=== PATIENT | male | born 1940 | race Caucasian/White ===

== ENCOUNTER 2022-09-24 10:41 | Emergency (ER) | payer MEDICARE, BC, SELFPAY ==
[2022-09-24 10:45] VITALS: BP 159/82; PULSE 70; RESP 18; TEMP 36.4; O2SAT 99; BMI 28.8
[2022-09-24 11:51] LABS: Basophils Absolute Auto 0.06 K/uL (0.00-0.30); Basophils Percent Auto 0.7 % (0.0-3.0); Hemoglobin* 13.1 gm/dL (13.5-17.5); Immature Granulocytes Abs Auto 0.01 K/uL (0.00-0.30); Immature Granulocytes Pct Auto 0.1 %; Lymphocytes Absolute Auto 2.04 K/uL (0.90-2.90); Lymphocytes Percent Auto 25.4 % (20-44); Mean Corpuscular HGB Conc 33 gm/dL (32-36); Mean Corpuscular Hemoglobin 31 pg (26-34); Mean Corpuscular Volume 94 fL (80-100); Monocytes Percent Auto 8.6 % (0.0-11.0); Neutrophils Absolute Auto 4.58 K/uL (1.7-7.0); Neutrophils Percent Auto 57.2 % (42.0-72.0); Platelet Count* 185 K/uL (140-440); Red Blood Count 4.26 m/uL (4.30-5.90); Slide Review Reflex No; White Blood Count* 8.02 K/uL (4.50-11.00)
--- NOTE | 2022-09-24 12:02 | ED_ITS ---
HPI - Chest Pain General Chief Complaint: Chest Pain Stated Complaint: chest pressure Time Seen by Provider: 09/24/22 11:11 History of Present Illness HPI narrative: 81-year-old man presenting to the emergency department on recommendation of Clinic/Urgent Care where he was evaluated this morning with an EKG. Does have a history of cardiac stents. He has recently returned to working out over the last few months. Just returned also from a trip to [place] where he was enjoying food and says that he gained 10 lb. While on his treadmill last night did have some right-sided and central chest pressure as well as a raw feeling in his throat that he would associate with prior ischemic cardiovascular events. He does have nitro but did not take it and notes that is rather old he probably should get a new prescription. He just stopped his workout and the discomfort went away. He remains pain-free since that time. He arrives to the emergency department around 11:00 a.m. the next morning. Other concern is that he was rather congested this morning in his throat having trouble clearing at noting him to sound like he had a ? rattle?. He is breathing fine. I note him to sound a little congested nasopharynx and he does acknowledge with more specific questioning that does probably have some allergies. Otherwise no cough or cold symptoms recently. No fevers. Not feeling lightheaded. Related Data Home Medications Medication Instructions Recorded Confirmed aspirin 81 mg tablet,delayed 81 mg PO QDAY 07/14/22 07/14/22 release blood sugar diagnostic (Contour #[id number] ea 07/14/22 07/14/22 Next Test Strips) lisinopril 40 mg tablet 40 mg PO QDAY 07/14/22 07/14/22 metformin 500 mg tablet 500 mg PO QDAY 07/14/22 07/14/22 metoprolol tartrate 25 mg tablet 25 mg PO QDAY 07/14/22 07/14/22 multivitamin (Multiple Vitamins 1 tab PO QDAY 07/14/22 07/14/22 tablet) nitroglycerin 0.4 mg sublingual 0.4 mg sublingual ONCE 07/14/22 07/14/22 tablet rosuvastatin 20 mg tablet 20 mg PO QDAY 07/14/22 07/14/22 Previous Rx's Medication Instructions Recorded nitroglycerin 0.4 mg sublingual 0.4 mg sublingual Q5M PRN chest 09/24/22 tablet pain #20 tabs Allergies Allergy/AdvReac Type Severity Reaction Status Date / Time atorvastatin Allergy leg aches Verified 07/14/22 15:26 oxycodone Allergy Hives Verified 07/14/22 15:26 simvastatin Allergy leg aches Verified 07/14/22 15:26 Review of Systems Status of ROS Reports: 6 or more systems reviewed and unremarkable except as noted in History and below PFSH PFSH Surgical History History of carpal tunnel surgery of left wrist (05/05/14) ?Z98.890 - Other specified postprocedural states (ICD-10) S/P ORIF (open reduction internal fixation) fracture (06/07/07) ?Z98.890 - Other specified postprocedural states (ICD-10) ?Z87.81 - Personal history of (healed) traumatic fracture (ICD-10) Family History Father Diabetes Social History Smoking Status: Never smoker Do you use any of these nicotine containing products: None Second hand tobacco smoke exposure: No How often do you have a drink containing alcohol: never AUDIT-C Alcohol total score: 0 Non-prescribed substance use: denies use service: No Exam Narrative Exam Narrative: Pleasant. NAD. Skin is warm and dry. Trace lower extremity pitting edema pretibial. Well perfused otherwise. Breathing easily. Lungs are clear other than a resolving wheeze trace in the left upper lung. Heart with regular rate and rhythm. Distant. I am not able to reproduce discomfort to palpation of the chest. Skin is warm and dry without apparent rash. Abdomen overweight soft and nontender. Oropharynx is moist. Not particularly erythematous. Again sounds congested nasopharynx but no facial swelling erythema or tenderness. Neck is supple without LA. Const Vital Signs, click to edit/add: Vital Signs - 24 hr 09/24/22 12:42 09/24/22 12:43 09/24/22 12:45 Pulse Rate 78 66 69 Blood Pressure 149/71 H Pulse Oximetry 97 99 99 09/24/22 13:02 09/24/22 13:03 Pulse Rate 70 72 Blood Pressure 147/75 H Pulse Oximetry 98 97 Documenting provider has reviewed patient's vital signs: yes Course Vital Signs Vital signs: Initial Vital Signs Temperature 97.5 F L 09/24/22 10:45 Temperature Source Temporal Artery Scan 09/24/22 10:45 Pulse Rate 70 09/24/22 10:45 Respiratory Rate 18 09/24/22 10:45 Blood Pressure 159/82 H 09/24/22 10:45 Blood Pressure Mean 107 09/24/22 10:45 Blood Pressure Position Sitting 09/24/22 10:45 Pulse Oximetry 99 09/24/22 10:45 Oxygen Delivery Method Room Air 09/24/22 10:45 Vital Signs Temperature 97.5 F L 09/24/22 10:45 Pulse Rate 70 09/24/22 10:45 Respiratory Rate 18 09/24/22 10:45 Blood Pressure 159/82 H 09/24/22 10:45 Pulse Oximetry 99 09/24/22 10:45 Oxygen Delivery Method Room Air 09/24/22 10:45 Temperature 97.5 F L 09/24/22 10:45 Pulse Rate 72 09/24/22 13:03 Respiratory Rate 18 09/24/22 10:45 Blood Pressure 147/75 H 09/24/22 13:02 Pulse Oximetry 97 09/24/22 13:03 Oxygen Delivery Method Room Air 09/24/22 10:45 MDM - Chest Pain MDM Narrative Medical decision making narrative: Certainly is possible that there was some exertional angina. Has been asymptomatic at this point. EKG at the clinic and here look to be without evidence of ischemic change. Differential includes pe, vascular disruption, anxiety, pneumonia, recent ischemic cardiovascular event, uri congestion, msk pain. monitored on manager cardiac without event. labs reassuring. Ithink without ongoing sxs, unnecessary to repeat labs today. see pt discharge plan Medical Records Data Attestation: I reviewed the patient's medical records. Lab Data Attestation: I reviewed the patient's lab results. Labs: Lab Results 09/24/22 09/24/22 09/24/22 Range/Units 11:40 11:40 11:40 WBC 8.02 (4.50-11.00) K/uL RBC 4.26 L (4.30-5.90) m/uL Hgb 13.1 L (13.5-17.5) gm/dL Hct 40.0 (37.0-53.0) % MCV 94 (80-100) fL MCH 31 (26-34) pg MCHC 33 (32-36) gm/dL RDW Coeff of Gama 14.0 (11.5-15.5) % Plt Count 185 (140-440) K/uL Neut % (Auto) 57.2 (42.0-72.0) % Lymph % (Auto) 25.4 (20-44) % Robeson % (Auto) 8.6 (0.0-11.0) % Eos % (Auto) 8.0 H (0.0-7.0) % Baso % (Auto) 0.7 (0.0-3.0) % Neut # (Auto) 4.58 (1.7-7.0) K/uL Lymph # (Auto) 2.04 (0.90-2.90) K/uL Robeson # (Auto) 0.70 (0.00-0.90) K/UL Eos # (Auto) 0.60 H (0.00-0.50) K/uL Baso # (Auto) 0.06 (0.00-0.30) K/uL D-Dimer Quant (PE/DVT) 0.45 (0.00-0.50) ug/ml Sodium 138 (135-149) mmol/L Potassium 4.8 (3.6-5.1) mmol/L Chloride 106 (96-114) mmol/L Carbon Dioxide 29 (20-32) mmol/L BUN 11 (7-30) mg/dL Creatinine 0.9 (0.5-1.5) mg/dL Estimated Creat Clear 58.92 Estimated GFR 86 ml/min Glucose 103 (60-115) mg/dL Calcium 9.3 (8.4-10.6) mg/dL Total Bilirubin Cancelled 1.0 Direct Bilirubin Cancelled 0.0 AST Cancelled ALT Alkaline Phosphatase Troponin I (0.01-0.04) ng/mL C-Reactive Protein (0.5-1.0) mg/dL NT-Pro-B Natriuret Pep pg/mL Total Protein Albumin POC Troponin I (0.01-0.04) ng/ml 09/24/22 09/24/22 09/24/22 Range/Units 11:40 11:40 11:40 WBC (4.50-11.00) K/uL RBC (4.30-5.90) m/uL Hgb (13.5-17.5) gm/dL Hct (37.0-53.0) % MCV (80-100) fL MCH (26-34) pg MCHC (32-36) gm/dL RDW Coeff of Gama (11.5-15.5) % Plt Count (140-440) K/uL Neut % (Auto) (42.0-72.0) % Lymph % (Auto) (20-44) % Robeson % (Auto) (0.0-11.0) % Eos % (Auto) (0.0-7.0) % Baso % (Auto) (0.0-3.0) % Neut # (Auto) (1.7-7.0) K/uL Lymph # (Auto) (0.90-2.90) K/uL Robeson # (Auto) (0.00-0.90) K/UL Eos # (Auto) (0.00-0.50) K/uL Baso # (Auto) (0.00-0.30) K/uL D-Dimer Quant (PE/DVT) (0.00-0.50) ug/ml Sodium (135-149) mmol/L Potassium (3.6-5.1) mmol/L Chloride (96-114) mmol/L Carbon Dioxide (20-32) mmol/L BUN (7-30) mg/dL Creatinine (0.5-1.5) mg/dL Estimated Creat Clear Estimated GFR ml/min Glucose (60-115) mg/dL Calcium (8.4-10.6) mg/dL Total Bilirubin Direct Bilirubin AST 36 H ALT Cancelled 29 Alkaline Phosphatase Cancelled 41 Troponin I < 0.01 L (0.01-0.04) ng/mL C-Reactive Protein (0.5-1.0) mg/dL NT-Pro-B Natriuret Pep pg/mL Total Protein Albumin POC Troponin I (0.01-0.04) ng/ml 09/24/22 09/24/22 09/24/22 Range/Units 11:40 11:40 11:40 WBC (4.50-11.00) K/uL RBC (4.30-5.90) m/uL Hgb (13.5-17.5) gm/dL Hct (37.0-53.0) % MCV (80-100) fL MCH (26-34) pg MCHC (32-36) gm/dL RDW Coeff of Gama (11.5-15.5) % Plt Count (140-440) K/uL Neut % (Auto) (42.0-72.0) % Lymph % (Auto) (20-44) % Robeson % (Auto) (0.0-11.0) % Eos % (Auto) (0.0-7.0) % Baso % (Auto) (0.0-3.0) % Neut # (Auto) (1.7-7.0) K/uL Lymph # (Auto) (0.90-2.90) K/uL Robeson # (Auto) (0.00-0.90) K/UL Eos # (Auto) (0.00-0.50) K/uL Baso # (Auto) (0.00-0.30) K/uL D-Dimer Quant (PE/DVT) (0.00-0.50) ug/ml Sodium (135-149) mmol/L Potassium (3.6-5.1) mmol/L Chloride (96-114) mmol/L Carbon Dioxide (20-32) mmol/L BUN (7-30) mg/dL Creatinine (0.5-1.5) mg/dL Estimated Creat Clear Estimated GFR ml/min Glucose (60-115) mg/dL Calcium (8.4-10.6) mg/dL Total Bilirubin Direct Bilirubin AST ALT Alkaline Phosphatase Troponin I Cancelled (0.01-0.04) ng/mL C-Reactive Protein < 0.5 L (0.5-1.0) mg/dL NT-Pro-B Natriuret Pep 77 Cancelled pg/mL Total Protein Cancelled 7.0 Albumin Cancelled POC Troponin I (0.01-0.04) ng/ml 09/24/22 Range/Units 11:40 WBC (4.50-11.00) K/uL RBC (4.30-5.90) m/uL Hgb (13.5-17.5) gm/dL Hct (37.0-53.0) % MCV (80-100) fL MCH (26-34) pg MCHC (32-36) gm/dL RDW Coeff of Gama (11.5-15.5) % Plt Count (140-440) K/uL Neut % (Auto) (42.0-72.0) % Lymph % (Auto) (20-44) % Robeson % (Auto) (0.0-11.0) % Eos % (Auto) (0.0-7.0) % Baso % (Auto) (0.0-3.0) % Neut # (Auto) (1.7-7.0) K/uL Lymph # (Auto) (0.90-2.90) K/uL Robeson # (Auto) (0.00-0.90) K/UL Eos # (Auto) (0.00-0.50) K/uL Baso # (Auto) (0.00-0.30) K/uL D-Dimer Quant (PE/DVT) (0.00-0.50) ug/ml Sodium (135-149) mmol/L Potassium (3.6-5.1) mmol/L Chloride (96-114) mmol/L Carbon Dioxide (20-32) mmol/L BUN (7-30) mg/dL Creatinine (0.5-1.5) mg/dL Estimated Creat Clear Estimated GFR ml/min Glucose (60-115) mg/dL Calcium (8.4-10.6) mg/dL Total Bilirubin Direct Bilirubin AST ALT Alkaline Phosphatase Troponin I (0.01-0.04) ng/mL C-Reactive Protein (0.5-1.0) mg/dL NT-Pro-B Natriuret Pep pg/mL Total Protein Albumin 4.3 POC Troponin I 0.00 L (0.01-0.04) ng/ml ECG Data Attestation: I personally reviewed and interpreted this ECG as follows: (Normal sinus rate of 68. No ischemic changes evident. ) Discharge Plan Discharge Clinical Impression: Chest pressure, Sinus congestion, Angina of effort Patient Disposition: Home, Self-Care Condition: Stable Additional Instructions: As discussed, hydration is good. Return for increasing persistent pain/pressure, associated lightheadedness, shortness of breath, nausea or diaphoresis, any of these unresolved with cessation of activity or taking nitroglycerin. (when Internet recovers will send in new nitro script for you) For congestion can take guaifenesin for mucus thinning, hydrate, pseudoephedrine especially effective for decongestion/trying, sleep under the mist of a cool mist humidifier. Follow-up within a week or so with primary or Cardiology to discuss next steps in workup. Prescriptions: New nitroglycerin 0.4 mg tablet, sublingual 0.4 mg sublingual Q5M PRN (Reason: chest pain) Qty: 20 1RF Rx Instructions: do not exceed 3 doses per episode No Action (DME) Contour Next Test Strips Strip See Rx Instructions .ROUTE .MEDSUPPLY Qty: 10 Patient Comments: TEST TWICE DAILY. Rx Instructions: As directed lisinopril 40 mg tablet 40 mg PO QDAY metformin 500 mg tablet 500 mg PO QDAY metoprolol tartrate 25 mg tablet 25 mg PO QDAY rosuvastatin 20 mg tablet 20 mg PO QDAY aspirin 81 mg tablet,delayed release (DR/EC) 81 mg PO QDAY multivitamin [Multiple Vitamins] Tablet 1 tab PO QDAY nitroglycerin 0.4 mg tablet, sublingual 0.4 mg sublingual ONCE Rx Instructions: as a single dose; administer 5-10 minutes before situation known to precipitate angina attack Follow Up/Referrals: ANGEL MEJIA DO [Primary Care Provider] - Stand Alone [facility]
[2022-09-24 12:07] LABS: Albumin* 4.3 g/dL (3.3-5.0)
[2022-09-24 12:08] LABS: Chloride* 106 mmol/L (96-114); Potassium* 4.8 mmol/L (3.6-5.1); Sodium* 138 mmol/L (135-149)
[2022-09-24 12:09] LABS: D Dimer Quantitative* 0.45 ug/ml (0.00-0.50)
[2022-09-24 12:10] LABS: Creatinine* 0.9 mg/dL (0.5-1.5); Est. Creatinine Clearance* 58.92; Estimated Glomerular Filt Rate 86 ml/min
[2022-09-24 12:11] LABS: Alanine Aminotransferase* 29 U/L (4-50); Alkaline Phosphatase* 41 U/L (40-150); Aspartate Amino Transferase* 36 U/L (12-35); Blood Urea Nitrogen* 11 mg/dL (7-30); Carbon Dioxide* 29 mmol/L (20-32); Glucose* 103 mg/dL (60-115)
[2022-09-24 12:12] LABS: Calcium* 9.3 mg/dL (8.4-10.6)
[2022-09-24 12:19] LABS: C Reactive Protein* < 0.5 mg/dL (0.5-1.0)
[2022-09-24 12:28] LABS: NT Pro B Type NatriureticPept* 77 pg/mL; Troponin I* < 0.01 ng/mL (0.01-0.04)
[2022-09-24 12:42] VITALS: PULSE 78; O2SAT 97
[2022-09-24 12:43] VITALS: BP 149/71; PULSE 66; O2SAT 99
[2022-09-24 12:45] VITALS: PULSE 69; O2SAT 99
[2022-09-24 13:02] VITALS: BP 147/75; PULSE 70; O2SAT 98
[2022-09-24 13:03] VITALS: PULSE 72; O2SAT 97
--- NOTE | 2022-09-24 13:32 | ED.NURSE ---
Due to internet disruptions, pt was unable to be provided w/ printed D/C instructions. Pt provided a copy of handwritten instructions by . Verbalized understanding of all written and verbal instructions. All questions answered. Pt is pain free and ambulatory off unit.
== END 2022-09-24 13:12 | disposition home or self-care (01) ==
PROVIDERS: Emergency Provider Family Medicine; PCP Student in an Organized Health Care Education/Training Program
DX: R07.9 Chest pain, unspecified (principal); I20.9 Angina pectoris, unspecified
CPT/HCPCS: 36415; 80048; 80076; 83880; 84484; 85025; 85379; 86140; 93005; 99284

== ENCOUNTER 2023-11-05 21:12 | Emergency (ER) | payer MEDICARE, BC, SELFPAY ==
--- NOTE | 2023-11-05 21:23 | CT_ITS ---
Patient: ELIZABETH NUNES Facility:?[facility] Patient ID:?[id number] Site Patient ID:?[id number] Site :?[id number] Study:?CT-Head W/O-11/05/2023 9:35:06 PM Ordering Physician:SEAN Final Report: INDICATION: Headache, vision changes x a few days. COMPARISON: None. TECHNIQUE: CT of the head without IV contrast. Coronal and sagittal reconstructions. FINDINGS: No intracranial hemorrhage, mass effect, or evidence of acute infarct. No midline shift. No abnormal extra-axial fluid collections. Mild generalized cerebral and cerebellar volume loss with associated ex vacuo dilation of the lateral ventricles. Mild patchy low attenuation within the bilateral supratentorial white matter consistent with chronic small vessel ischemic disease. Orbits and extraocular muscles are symmetric. There is mucosal thickening in the sphenoid sinuses and near complete opacification of the bilateral ethmoid air cells. The mastoid air cells are clear. Soft tissues are unremarkable. No acute fracture identified. IMPRESSION: 1. No acute intracranial findings. 2. Mild generalized cerebral volume loss and mild presumed chronic small vessel ischemic disease. 3. Paranasal sinus mucosal thickening/opacification. Please note that all CT scans at this facility use dose modulation, iterative reconstruction, and/or weight-based dosing when appropriate to reduce radiation dose to as low as reasonably achievable. Dictated by Trupti Cedeno MD @ 11/05/2023 9:49:19 PM Signed by:?Trupti Cedeno MD @11/05/2023 9:49:19 PM (Electronic Signature)
[2023-11-05 21:24] VITALS: BP 144/72; PULSE 72; RESP 16; TEMP 36.6; O2SAT 94
--- OUTSIDE RECORDS SUMMARY | 2023-11-05 22:35 | XMS_ITS | Continuity of Care Document ---
Author Name Unknown Organization [facility] Address [address] [place] [address] Phone Care Team Providers Care Eeg Tech Name Role Phone Josselin Espinal MD Unavailable Unavailable Allergies, Adverse Reactions, Alerts Substance Reaction Status Criticality Nbirzkv-TRR-ImJ Reductase Inhibitors Acti ve No Information Medications Medication Instructions Dosage Effective Dates (start - stop) Status Comments POLYETHYLENE GLYCOL (unknown strength) Not Available - Active MP MAGNESIUM (unknown strength) Not Available - Active LISINOPRIL (unknown strength) Not Available - Active CHOLEST OFF (unknown strength) Not Available - Active FISH OIL (unknown strength) Not Available - Active MULTIVITAMINS (unknown strength) Not Available - Active Procedures Procedure Date Postop Followup Visit Postop Followup Visit Bilateral Low Back Disk Surgery/Decompre ss Bilateral Added Spine Disk Surgery/Decom press Bilateral Pa Low Back Disk Surgery/Decom press Bilateral Pa Added Spine Disk Surgery/De compress Office/Outpatient Visit,[facility] 2014 X-Ray Exam Lower Spine 2-3 Views 2014 Advance Directives Directive Yes / No Effective Date File Name No Information Encounters Encounter Description Practice Location Reason(s) For Visit Diagnoses Date Provider Providers Copied on Encounter [facility], [address], [place], [id number] , [place] tel:[phone] [facility] No Information 6-201 6 Teddy Ware [facility], [address] [place] [address] [address], [place], [id number] , [place]. tel: [phone] [facility], [address], [place], [place], [id number] , [place] tel: [phone] [facility] OVERWEIGHTHyperte nsion, UnspecifiedSpinal stenosis of lumbar region with neurogenic claudication 5 Mehbod Amir. [facility], [address], [place], [id number] , [place]. tel: [phone] [facility], [address], [place], [place], [id number] , [place] tel: [phone] [facility] - [place] Spinal stenosis of lumbar region with neurogenic claudication 5 Mehbod Amir. [facility] [place], [address] [place] [address] [address], [place], [id number] , [place]. tel: [phone] [facility], [address], [place], [id number] , [place] tel: [phone] [facility] No Information 5 Mehbod Amir. [facility], [address], [place], [id number] , [place]. tel: [phone] Office/Outpa tient Visit,New, Low [facility], [address], [place], [id number] , [place] tel: [phone] [facility] [place] Lumbosacral spondylosis without myelopathyOVERWEI GHTSpondylolisthe sis, congenitalLumbosa cral spondylosis without myelopathy 5 Mehbod Amir. [facility] [place], [address], [place], [id number] , [place]. tel: [phone] Family History Family Member Type Diagnosis Age At Onset No Information Payers Payer name Insurance type Covered constitution party ID Authorestivena tisoha(s) [employer] Conrad HUMMEL [id number] Social History Type Description Quantity Date Captured Comments Sex Male Smoking Status No Information Chief Complaint And Reason For Visit No Information Reason For Referral Reason For Referral No Information Plan Of Treatment Date Type Action Status Future Order: Radiology Order AP Lumbar (APLumb), Ordered on: Ordered Future Order: Radiology Order F/ E Lumbar (F/ELumb), Ordered on: Ordered History Of Present Illness Encounter Date Complaint History Of Prese nt Illness No Information Functional Status Date Functional Assessmen t No Information Instructions Date Instruction Additional Infor mataly Weight Management Related to Ove rweight Exercise education Related to Un specified Essential Hypertension Weight Management Related to Ove rweight Assessments Type Assessment Date No Information Patient Care Teams Name Effective Dates (start - stop) Status Members No Information
--- OUTSIDE RECORDS SUMMARY | 2023-11-05 22:35 | XMS_ITS | Clinical Summary ---
Author Name Unknown Organization [employer] [facility] Address [place], [place] [address] Care Team Providers Care Insole Filler Name Role Phone Luis Fernando Faye Unavailable [phone] Anne Lubin MD Unavailable Van Chamberlain MD Primary Care Provider [phone] Allergies Active Allergy Reactions Criticality Noted Date Comments Atorvastatin Myalgia 10/16/2008 Leg Aches Oxycodone Itching 08/29/2014 Simvastatin Myalgia 05/16/2016 Medications Medication Sig Dispensed Refills Start Date End Date Status MULTIVITAMIN TAB take 1 tablet by oral route once daily with food 0 10/27/2006 Active coenzyme q10 (COQ-10) 100 mg cap Take 1 capsule by mouth once daily. 0 06/17/2016 Active cholecalciferol (VITAMIN D) 1,000 unit tablet Take 1 tablet by mouth once daily. 0 11/21/2016 Active aspirin chewable 81 mg chewable tablet Take 1 tablet by mouth once daily with a meal. 0 08/04/2017 Active polyethylene glycoL (MIRALAX) 17 gram/dose powderIndications:Co nstipation, unspecified constipation type mix 17grams with 8 ounces of water, juice, soda, coffee, or tea and drink by mouth once daily. 1581 g 10 07/28/2018 Active PreviDent 5000 Enamel Protect 1.1-5 % pste APPLY A PEA SIZE AMOUNT ONTO SOFT BRISTLE [id number] BRUSH THOROUGHLY FOR AT LEAST 1 MONUTE TWICE DAILY EXPECTORATE 03/17/2022 Active blood-glucose meterIndications:Typ e 2 diabetes mellitus without complication, without long-term current use of insulin (HC) by abdominal subcutaneous route. Dispense meter, test strips, lancets covered by pt ins. E11.9 NIDDM type II - Test 2 times/day. Reason: Unstable diabetes 1 Each 04/28/2022 Active CPAPIndications:ERICA (obstructive sleep apnea) CPAP machine for home use at pressure 12 cm/H2O, full face mask x1/3month with a full face cushion x1/mo 1 Each 11/19/2022 Active multivitamins-minera ls-lutein (Multivitamin 50 Plus) tab tablet Take 1 Tablet by mouth once daily. Active blood sugar diagnostic (Blood Glucose Test) stripIndications:Typ e 2 diabetes mellitus without complication, without long-term current use of insulin (HC) Dispense item covered by pt ins. E11.9 NIDDM type II - Test 1 time/day 200 Each 09/11/2023 Active nitroglycerin (NITROSTAT) 0.4 mg sublingual tabletIndications: HD (arteriosclerotic heart disease) Place 1 Tablet (0.4 mg) under the tongue every 5 minutes if needed for Chest Pain (first choice for chest pain). 25 Tablet 3 09/11/2023 Active rosuvastatin (CRESTOR) 10 mg tabletIndications:Ot her hyperlipidemia Take 1 Tablet (10 mg) by mouth at bedtime. 90 Tablet 3 09/11/2023 Active metoprolol tartrate (LOPRESSOR) 25 mg tabletIndications:Hy pertension, unspecified type Take 1 Tablet (25 mg) by mouth two times daily. 180 Tablet 3 09/11/2023 Active lisinopriL (PRINIVIL; ZESTRIL) 40 mg tabletIndications:Hy pertension, unspecified type Take 1 Tablet (40 mg) by mouth once daily. 90 Tablet 09/11/2023 Active lancets (Microlet Lancet)Indications:T ype 2 diabetes mellitus without complication, without long-term current use of insulin (HC) Test twice daily. 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 Adenomatous colon polyp 02/01/2020 Overview: Colonoscopy 01/2020 polyp, repeat in 5 years Atypical chest pain 05/13/2019 Chronic chest wall pain 05/13/2019 Essential hypertension 07/16/2018 ERICA 02/02/07 AHI-34 10/15/2017 Hyperlipidemia, unspecified 03/06/2017 Mixed hyperlipidemia 08/06/2016 HTN (hypertension) 05/23/2015 Lumbar spinal stenosis 08/05/2014 ACP (advance care planning) 01/17/2013 Overview: Discussed 01/17/2013; given papers to complete Memory loss 01/17/2013 Myalgia and myositis, unspecified 10/27/2011 Nasal polyps 12/26/2010 Unspecified constipation 01/31/2010 Overview: Much improved with regular Miralax. 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 Allergic rhinitis, cause unspecified 11/04/2006 Statin intolerance ASHD (arteriosclerotic heart disease) Overview: Dr. Hopkins stated Mario can go off his Plavix on 10/27/2018. Van Chamberlain MD Resolved Problems Problem Noted Date Diagnosed Date Resolved Date Prediabetes 10/19/2020 03/10/2022 Sleep apnea 11/04/2006 12/27/2020 Overview: Uses CPAP for this. Encounters Date Type Department Care Team Description 09/24/2023 8:15 AM CDT Orders Only [facility] [address] [place] [address] Lab, [place] 09/24/2023 Travel 09/11/2023 9:15 AM CDT Office Visit [facility] [address] [place] [address] Van Chamberlain MD Medicare ANNUAL (subsequent) Visit (81 years) 09/11/2023 Travel 09/04/2023 9:30 AM CLAY DRY PRESS MIXER OPERATOR Orders Only [facility] [address] [place] [address] Lab, [place] 09/04/2023 Travel from Last 3 Months Immunizations Name Administration Dates Next Due AMB Influenza, IIV3 (Age >=3 years)(Flu Clinic Only) 04/21/2013,06/05/2011,06/18/2010 Influenza A (H1N1), Inactiva michael (Age >=3 Years) 07/12/2009 Influenza, High-dose Inactivated 019,03/14/2016,04/01/2015,2013 Influenza, IIV3 (Age >=3 years) 06/03/20 12,07/12/2009,05/18/2007,2005 Influenza, Inactivated AIIV4 (Age 65+ Years) Preserv Free 03/10/2022,05/13/2021,03/20/2020 Influenza, Inactivated IIV3 (Age 65+ Years) Preserv Free 05/13/2017 Pneumococcal Poly,23-Valent (Pneumovax) 05/30/2016,10/26/2006 Pneumococcal conj 13-Valent (Prevnar 13) 08/22/2014 Td (Age >=7 Years) 07/11/2002 Tdap 10/27/2011 Zoster (Shingrix-RZV, recombinant) 07/04/2021, Zoster (Zostavax-ZVL, live) 10/26/2006 Family History Medical History Relation Name Comments Cancer Daughter Kristy Hanley Diagnosed w cervical cancer that spread to lymph nodes Alcohol/Drug Father Al Diabetes Father Al d at 68 Psychiatric illness Father Al depressi on Stroke Mother Amber d at 87 Arthritis Sister 1 Raven bilateral knee and hip replacement Obesity Sister 2 Maryana Anesthesia Problem No Family History Blood Disease No Family History Relation Name Status Comments Daughter Kristy Hanley Alive Father Al (Age 68) Diabetic Mother Amber (Age 87) Sister 1 Raven Alive Sister 2 Maryana Alive Social History Tobacco Use Types Packs/Day Years Used Date Smoking Tobacco: Never Smokeless Tobacco: Never Tobacco Cessation:Counseling Given: Yes 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 1 09/11/2023 How many drinks containing a lcohol do you have on a typical day when you are drinking? 0 09/11/2023 How often do you have five or more drinks on one occasion? 0 09/11/2023 Financial Resource Strain Answer Date R ecorded Difficulty of Paying Living Expenses 3 09/24/2022 Difficulty of Paying Living Expenses Not on file 09/24/2022 Food Insecurity Answer Date Recorded Worried About Running Out of Food in the Last Ye ar 1 09/24/2022 Transportation Needs Answer Date Record ed Lack of Transportation (Medical) 1 09/24/2022 Housing Stability Answer Date Recorded Unable to Pay for Housing in the Last Year 1 09/24/2022 Sex and Gender Information Value Date Recorded Sex Assigned at Not on file Gender Identity Not on file Sexual Orientation Not on file Obstetrics History Last Filed Vital Signs Vital Sign Reading Time Taken Comments Blood Pressure 128/66 09/11/2023 9:26 AM CDT Pulse 69 09/11/2023 9:26 AM CDT Temperature 36.4 ??C (97.5 ??F) 09/24/2022 9:55 AM CD T Respiratory Rate 18 09/09/2019 1:34 PM CDT Oxygen Saturation 99% 09/11/2023 9:26 AM CDT Inhaled Oxygen Concentration - - Weight 85.2 kg (187 lb 12.8 oz) 09/11/2023 9:26 AM CDT Height 174.4 cm (5' 8.66) 09/11/2023 9:26 AM CD T Body Mass Index 28.01 09/11/2023 9:26 AM CDT Plan of Treatment Upcoming Encounters Date Type Department Care Team (Late st Contact Info) Description 03/11/2024 7:30 AM CDT Orders Only [facility] [address] [place] [address] Lab, [place] 03/15/2024 7:30 AM CDT Office Visit [facility] [address] [place] [address] Van Chamberlain MD [address] [place] [address] Health Maintenance Due Date Last Done Comments Tetanus booster 10/26/2021 10/27/2011, 07/11/2002 COVID-19 vaccine series ( season) 2023 Influenza for age 65+ 02/28/2024 03/10/2022 , 05/13/2021, 03/20/2020, Additional history exists BMI (ht and wt on same day) for age 18+ 09/10/2024 09/11/2023, 03/13/2023, 11/19/2022, Additional history exists Depression screening for age 12+ 09/10/2024 09/11/2023, 09/08/2022, 09/08/2022, Additional history exists Medicare Wellness for age 65+ 09/11/2024, 09/08/2022, 08/12/2021, Additional history exists Tdap Completed 10/27/2011 Pneumococcal series for age 65+ Completed 05/30/2016, 08/22/2014, 10/26/2006 Zoster (shingles) series for age 50+ Completed 07/04/2021, 02/05/2021, 10/26/2006 Procedures Procedure Name Priority Date/Time Associated Diagnosis Comments URINE ALBUMIN TO CREATININE RATIO, RANDOM Routine 09/24/2023 1:00 PM CDT Type 2 diabetes mellitus without complication, without long-term current use of insulin (HC) MAGNESIUM Routine 09/24/2023 8:20 AM CDT Essential hypertension VITAMIN D 25 (DEFICIENCY) Routine 09/24/2023 8:20 AM CDT Vitamin D deficiency CHROMIUM BLOOD Routine 09/24/2023 8:20 AM CDT Excessive vitamin intake VITAMIN B12 Routine 09/24/2023 8:20 AM CDT Excessive vitamin intake VITAMIN E Routine 09/24/2023 8:20 AM CDT Excessive vitamin intake VITAMIN K1 Routine 09/24/2023 8:20 AM CDT Excessive vitamin intake VITAMIN A BLOOD Routine 09/24/2023 8:20 AM CDT Excessive vitamin intake PSA TOTAL SCREEN Routine 09/04/2023 9:28 AM CLAY DRY PRESS MIXER OPERATOR Prostate cancer screening LIPID PANEL W REFLEX MEASURED LDL Routine 09/04/2023 9:28 AM CLAY DRY PRESS MIXER OPERATOR Diabetes mellitus (HC) BASIC METABOLIC PANEL Routine 09/04/2023 9:28 AM CLAY DRY PRESS MIXER OPERATOR Type 2 diabetes mellitus without complication, without long-term current use of insulin (HC) HEMOGLOBIN A1C Routine 09/04/2023 9:28 AM CLAY DRY PRESS MIXER OPERATOR Type 2 diabetes mellitus without complication, without long-term current use of insulin (HC) from Last 3 Months Results * URINE ALBUMIN TO CREATININE RATIO, RANDOM (09/24/2023 1:00 PM CDT) ALB RAND URINE <12.0 mg/L 09/24/2023 11:39 PM CDT [facility] CREATININE,URINE 1.28 g/L 09/24/19 11:39 PM CDT [facility] ALBUMIN TO CREATININE RATIO,RAND UR 09/24/2023 11:39 PM CDT [facility] Comment:Urine Albumin below measurement range, unable to calculate. Urine URINE SPECIMEN / Unknown Non-Blood / Unknown 09/24/2023 1:00 PM CDT 09/24/2023 1:16 PM CDT Narrative [facility] - 09/24/2023 11:39 PM CDT If Albumin to Creatinine Ratio is elevated, consider the following: ? Elevations seen with incipient nephropathy associated ?? with diabetes mellitus or hypertension. Stress, exercise,hematuria, ?? and urinary tract infection may also produce elevated results. If clinically indicated, confirm with ?24 Hour Albumin to Creatinine Ratio. ?? Van Chamberlain MD URINE [facility] [address] [place] [address], * CHROMIUM BLOOD (09/24/2023 8:20 AM CDT) CHROMIUM <1.0 <1.0 ng/ml 09/29/2023 11:47 PM CDT [facility] Comment: Analysis performed by Inductively-Coupled Plasma/Mass ? Spectrometry (ICP/MS). ? This test was developed and its performance characteristics determined by [employer]. It has not been cleared or approved by the Food and Drug Administration. Blood BLOOD SPECIMEN / Unknown Venipuncture / Unknown 09/24/2023 8:20 AM CDT 09/24/2023 8:27 AM CDT Van Chamberlain MD CHEMISTRY [facility] [address] [place] [address], * VITAMIN E (09/24/2023 8:20 AM CDT) Vit E Alpha Bantam 14.0 9.0 - 29.0 mg/L 09/29/2023 1:09 PM CDT [facility] Vit E Gamma Bantam 1.0 0.5 - 4.9 mg/L 09/29/2023 1:09 PM CDT [facility] ([facility]) Comment: Reference intervals for alpha and gamma-tocopherol determined from National Health and Nutrition Examination Survey, 5469-6183. Individuals with alpha-tocopherol levels less than 5.0 mg/L are considered vitamin E deficient. Blood BLOOD SPECIMEN / Unknown Venipuncture / Unknown 09/24/2023 8:20 AM CDT 09/24/2023 8:27 AM CDT Narrative [facility] ([facility]) - 09/29/2023 1:09 PM CDT Test(s) [id number] E(Alpha Tocopherol); 465266- Vitamin E(Gamma Tocopherol) was developed and its performance characteristics determined by [employer]. It has not been cleared or approved by the Food and Drug Administration. Performed at: ??[address] - [address] ??[id number] Leg Man: Mp Bee MD, Phone: ??[phone] Van Chamberlain MD SEND OUTS [facility] ([facility]) [address] [place] [address], * (ABNORMAL) VITAMIN K1 (09/24/2023 8:20 AM CDT) Vitamin K1 2.67(H) 0.10 - 2.20 ng/mL 09/29/2023 2:08 PM CDT [facility] ([facility]) Blood BLOOD SPECIMEN / Unknown Venipuncture / Unknown 09/24/2023 8:20 AM CDT 09/24/2023 8:27 AM CDT [facility] ([facility]) - 09/29/2023 2:08 PM CDT Test(s) [id number] K1 was developed and its performance characteristics determined by [facility]. It has not been cleared or approved by the Food and Drug Administration. Performed at: ??[address] - [address] ??[id number] Leg Man: Mp Bee MD, Phone: ??[phone] Van Chamberlain MD SEND OUTS Performing Organization Address [facility]/ZIP Co de Phone Number [facility] ([facility]) [address] [place] [address], * VITAMIN A BLOOD (09/24/2023 8:20 AM CDT) Vitamin A 47.3 22.0 - 69.5 ug/dL 09/29/2023 1:09 PM CDT [facility] ([facility]) Comment: Reference intervals for vitamin A determined from [facility] internal studies. Individuals with vitamin A less than 20 ug/dL are considered vitamin A deficient and those with serum concentrations less than 10 ug/dL are considered severely deficient. This test was developed and its performance characteristics determined by [facility]. It has not been cleared or approved by the Food and Drug Administration. Blood BLOOD SPECIMEN / Unknown Venipuncture / Unknown 09/24/2023 8:20 AM CDT 09/24/2023 8:27 AM CDT [facility] ([facility]) - 09/29/2023 1:09 PM CDT Performed at: ??[address] - [address] ??[id number] Leg Man: Mp Bee MD, Phone: ??[phone] Van Chamberlain MD SEND OUTS Performing Organization Address [facility]/ZIP Co de Phone Number [facility] ([facility]) [address] [place] [address], * VITAMIN D 25 (DEFICIENCY) (09/24/2023 8:20 AM CDT) VITAMIN D TOTAL 41.5 20.0 - 80.0 ng/mL 09/24/2023 6:25 PM CDT [facility] Blood BLOOD SPECIMEN / Unknown Venipuncture / Unknown 09/24/2023 8:20 AM CDT 09/24/2023 8:27 AM CDT Narrative [facility] - 09/24/2023 6:25 PM CDT ? Vitamin D Status Deficiency: ? <20 ng/mL Insufficiency: ?20-29 ng/mL Sufficiency: ?30-80 ng/mL Possible Toxicity: ??>80 ng/mL Based on [place] [employer] recommendations Biotin supplements may cause clinically significant interference for this test assay. ??If interference is suspected, it is strongly recommended that biotin is discontinued for at least one week prior to retesting. Van Chamberlain MD SEND OUTS Performing Organization Address City/[facility]/ZIP Co de Phone Number [facility] [address] [place] [address], * MAGNESIUM (09/24/2023 8:20 AM CDT) MAGNESIUM 2.3 1.6 - 2.4 mg/dL 09/24/2023 5:42 PM CDT [facility] Blood BLOOD SPECIMEN / Unknown Venipuncture / Unknown 09/24/2023 8:20 AM CDT 09/24/2023 8:27 AM CDT Van Chamberlain MD CHEMISTRY Performing Organization Address City/[facility]/ZIP Co de Phone Number [facility] [address] [place] [address], * VITAMIN B12 (09/24/2023 8:20 AM CDT) VITAMIN B12 1,099 232 - 1,245 pg/mL 09/24/2023 7:01 PM CDT [facility] Blood BLOOD SPECIMEN / Unknown Venipuncture / Unknown 09/24/2023 8:20 AM CDT 09/24/2023 8:27 AM CDT Narrative [facility] - 09/24/2023 7:01 PM CDT Biotin supplements may cause clinically significant interference for this test assay. ??If interference is suspected, it is strongly recommended that biotin is discontinued for at least one week prior to retesting. Van Chamberlain MD CHEMISTRY Performing Organization Address City/[facility]/ZIP Co de Phone Number [facility] [address] [place] [address], * (ABNORMAL) LIPID PANEL W REFLEX MEASURED LDL (09/04/2023 9:28 AM CLAY DRY PRESS MIXER OPERATOR) [facility] CHOLESTEROL,TOTAL 141 100 - 199 mg/dL 09/04/2023 5:58 PM CLAY DRY PRESS MIXER OPERATOR [facility] TRAL LABORATORY Comment: Cholesterol, Total Reference Ranges Desirable <200 mg/dL Borderline 200-239 mg/dL High >=240 mg/dL TRIGLYCERIDES 151(H) <150 mg/dL 09/04/2023 5:58 PM CLAY DRY PRESS MIXER OPERATOR [facility] HDL CHOLESTEROL 43 >40 mg/dL 5:58 PM CLAY DRY PRESS MIXER OPERATOR [facility] TR[facility] LAB[facility]ORY NON-HDL CHOLESTEROL 98 <145 mg/dl 09/04/2023 5:58 PM CLAY DRY PRESS MIXER OPERATOR [facility] TRAL LABORATORY CHOL/HDL RATIO 3.28 <4.50 09/04/2023 5:58 PM CLAY DRY PRESS MIXER OPERATOR [facility] TR[facility] LAB[facility] LDL CHOLESTEROL 68 <=130 mg/dL 09/04/2023 5:58 PM CLAY DRY PRESS MIXER OPERATOR [facility] VLDL CHOLESTEROL 30 <=30 mg/dL 09/04/2023 5:58 PM CLAY DRY PRESS MIXER OPERATOR [facility] TRAL LABORATORY PROVIDER ORDERED STATUS RANDOM 09/04/2023 5:58 PM CLAY DRY PRESS MIXER OPERATOR [facility] TR[facility] LABORATORY Blood BLOOD SPECIMEN / Unknown Venipuncture / Unknown 09/04/2023 9:28 AM CLAY DRY PRESS MIXER OPERATOR 09/04/2023 9:30 AM CLAY DRY PRESS MIXER OPERATOR Van Chamberlain MD CHEMISTRY Performing Organization Address [facility]/ZIP Co de Phone Number [facility] [address] [place] [address], [place] * HEMOGLOBIN A1C MONITORING (POCT) (09/04/2023 9:28 AM CLAY DRY PRESS MIXER OPERATOR) [facility] HEMOGLOBIN A1C MONITORING (POCT) 6.1 <=6.4 % 09/04/2023 9:40 AM [facility] Blood BLOOD SPECIMEN / Unknown Venipuncture / Unknown 09/04/2023 9:28 AM CLAY DRY PRESS MIXER OPERATOR 09/04/2023 9:30 AM CLAY DRY PRESS MIXER OPERATOR Narrative [facility] - 09/04/2023 9:40 AM CLAY DRY PRESS MIXER OPERATOR ? (<=6.9%) ? Indicates good control ? (7.0% to 7.9%) ? Indicates fair control ? (>=8.0%) ? Indicates poor control ?? NOTE: ??These thresholds are guidelines and ?individual targets may vary. Falsely low levels may be seen with: Recent Transfusion, Recent Significant Blood Loss, Hemolytic Diseases, or Falsely elevated levels may be seen with: Untreated Anemias, Splenectomy ? Van Chamberlain MD CHEMISTRY [facility] [address] [place] [address], * (ABNORMAL) BASIC METABOLIC PANEL (09/04/2023 9:28 AM CLAY DRY PRESS MIXER OPERATOR) [facility] SODIUM 139 136 - 145 mmol/L 09/04/2023 5:58 PM [facility] POTASSIUM 4.4 3.5 - 5.1 mmol/L 09/04/2023 5:58 PM [facility] CHLORIDE 102 98 - 107 mmol/L 09/04/2023 5:58 PM [facility] CO2,TOTAL 27 22 - 29 mmol/L 09/04/2023 5:58 PM [facility] ANION GAP 10 5 - 18 09/04/2023 5:58 PM [facility] GLUCOSE 97 70 - 99 mg/dL 09/04/2023 5:58 PM [facility] CALCIUM 9.7 8.8 - 10.2 mg/dL 09/04/2023 5:58 PM CLAY DRY PRESS MIXER OPERATOR [facility] BUN 20 8 - 23 mg/dL 09/04/2023 5:58 PM [facility] CREATININE 1.18 0.70 - 1.20 mg/dL 09/04/2023 5:58 PM CLAY DRY PRESS MIXER OPERATOR [facility] BUN/CREAT RATIO 17 10 - 20 5:58 PM [facility] eGFR 62(L) >90 mL/min/1.7 3m2 09/04/2023 5:58 PM [facility] Comment:As of 2021, eG FR is calculated by the CKD-EPI creatinine equation without race adjustment. ??eGFR can be influenced by muscle mass, exercise, and diet. ??The reported eGFR is an estimation only and is only applicable if the renal function is stable. Blood BLOOD SPECIMEN / Unknown Venipuncture / Unknown 09/04/2023 9:28 AM CLAY DRY PRESS MIXER OPERATOR 09/04/2023 9:30 AM CLAY DRY PRESS MIXER OPERATOR Van Chamberlain MD CHEMISTRY [facility] [address] [place] [address], * PSA TOTAL SCREEN - Dx Auto-associated (09/04/2023 9:28 AM CLAY DRY PRESS MIXER OPERATOR) PSA TOTAL (SCREEN) 2.33 <4.00 ng/mL 09/04/2023 7:10 PM CLAY DRY PRESS MIXER OPERATOR [facility] Blood BLOOD SPECIMEN / Unknown Venipuncture / Unknown 09/04/2023 9:28 AM CLAY DRY PRESS MIXER OPERATOR 09/04/2023 9:30 AM CLAY DRY PRESS MIXER OPERATOR Narrative [facility] - 09/04/2023 7:10 PM CLAY DRY PRESS MIXER OPERATOR The test method changed on 12/23/2022. If this test has been used for serial monitoring, rebaselining is recommended. Rebaselining consists of 2 measurements, collected 3-6 weeks apart. The [employer] total PSA assay is an electrochemiluminescence immunoassay ECLIA performed on the [employer] Dest[employer] e immunoassay analyzers. Values obtained with different assay methods may be different and cannot be used interchangeably. Van Chamberlain MD LABORATORY [facility] [address] [place] [address], from Last 3 Months Advance Directives Documents on File Type Date Recorded Patient Park Interpretive Specialist Expl anation Healthcare Directive 09/27/2013 2:42 PM DUR ABLE POWER OF CHEMICAL UNIT OPERATOR FOR HEALTH CARE, [facility], 09/06/13 * Full Code (Latest Code Status on File) Date Activated Date Inactivated Comments 05/15/2016 10:47 PM 05/17/2016 6:59 PM * Full Code Date Activated Date Inactivated Comments 05/15/2016 10:31 PM 05/15/2016 10:47 PM * Full Code Date Activated Date Inactivated Comments 08/29/2014 6:22 PM 08/30/2014 4:46 PM * Full Code Date Activated Date Inactivated Comments 08/29/2014 9:51 AM 08/29/2014 6:22 PM Care Teams Insole Filler Relationship Specialty Start Date End Date Van Chamberlain MD [facility] [place] [address] PCP - General Family Practice 04/07/13 Luis Fernando Faye [address] [place] [address] Manager [employer] 01/14/12 Anne Lubin MD [address] [place] [address] Ophthalmology Surgery 01/14/12
--- NOTE | 2023-11-05 22:58 | ED.GENADULT ---
HPI - General Adult General Date Seen: 11/05/23 <Kat Thompson MD - Last Filed: 11/08/23 07:14> Chief complaint: Headache/Migraine <Kat Thompson MD - Last Filed: 11/08/23 07:14> Stated complaint: TIA, slight pressure in head <Kat Thompson MD - Last Filed: 11/08/23 07:14> Time Seen by Provider: 11/05/23 21:27 <Kat Thompson MD - Last Filed: 11/08/23 07:14> Source: patient, family and RN notes reviewed <Kat Thompson MD - Last Filed: 11/08/23 07:14> Mode of arrival: ambulatory <Kat Thompson MD - Last Filed: 11/08/23 07:14> Limitations: no limitations <Kat Thompson MD - Last Filed: 11/08/23 07:14> History of Present Illness HPI narrative: Patient is an 82-year-old male who is here with his for evaluation of some visual changes he has noticed a couple of times over the past few days. He has had 2 rib maybe 3 episodes where when reading specifically, he noted difficulty reading because he could only see half of each word. This did not generalize to the book itself, or to his surrounding environment, he was otherwise able to see. But he says that words seem to half disappear. 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 He says he tried closing his right eye during these symptoms and it did not make a difference. He also noted some pressure in his head at this time. He does not have a history of headaches or migraines. Symptoms lasted approximately 30 minutes and then resolved. He does not have a history of prior stroke, does have a couple of cardiac stents. He has a longstanding history of vertigo and this is a frequent symptom for him, but he did not notice vertigo at the same time as the vision symptoms. Currently, he is symptom free. He is not anticoagulated. He does not smoke or drink. He describes himself as being borderline diabetic, does take metformin. He is on medications for cholesterol and blood pressure as well as a baby aspirin. <Kat Thompson MD - Last Filed: 11/08/23 07:14> Related Data Home medications: Home Medications Medication Instructions Recorded Confirmed aspirin 81 mg tablet,delayed 81 mg PO QDAY 07/14/22 03/16/23 release blood sugar diagnostic (Contour #10 ea 07/14/22 03/16/23 Next Test Strips) lisinopril 40 mg tablet 40 mg PO QDAY 07/14/22 03/16/23 metformin 500 mg tablet 500 mg PO QDAY 07/14/22 03/16/23 metoprolol tartrate 25 mg tablet 25 mg PO QDAY 07/14/22 03/16/23 multivitamin (Multiple Vitamins 1 tab PO QDAY 07/14/22 03/16/23 tablet) nitroglycerin 0.4 mg sublingual 0.4 mg sublingual ONCE 07/14/22 03/16/23 tablet rosuvastatin 20 mg tablet 20 mg PO QDAY 07/14/22 03/16/23 Previous Rx's Medication Instructions Recorded nitroglycerin 0.4 mg sublingual 0.4 mg sublingual Q5M PRN chest 09/24/22 tablet pain #20 tabs <Kat Thompson MD - Last Filed: 11/08/23 07:14> Allergies/adverse reactions: Allergies Allergy/AdvReac Type Severity Reaction Status Date / Time oxycodone Allergy Intermediate Hives Verified 03/16/23 10:01 atorvastatin Allergy Mild leg aches Verified 03/16/23 10:01 simvastatin Allergy leg aches Verified 03/16/23 10:01 <Kat Thompson MD - Last Filed: 11/08/23 07:14> Review of Systems Status of ROS: Reports: 10 or more systems reviewed and unremarkable except as noted in History and below <Kta Thompson MD - Last Filed: 11/08/23 07:14> [facility] Medical History: Medical History Chest pain ?R07.9 - Chest pain, unspecified (ICD-10) Atypical chest pain ?R07.89 - Other chest pain (ICD-10) High cholesterol ?E78.00 - Pure hypercholesterolemia, unspecified (ICD-10) Hypertension ?I10 - Essential (primary) hypertension (ICD-10) Diabetes ?E11.9 - Type 2 diabetes mellitus without complications (ICD-10) <Kat Thompson MD - Last Filed: 11/08/23 07:14> Surgical History: Surgical History S/P ORIF (open reduction internal fixation) fracture (06/07/07) ?Z98.890 - Other specified postprocedural states (ICD-10) ?Z87.81 - Personal history of (healed) traumatic fracture (ICD-10) History of carpal tunnel surgery of left wrist (05/05/14) ?Z98.890 - Other specified postprocedural states (ICD-10) <Kat Thompson MD - Last Filed: 11/08/23 07:14> Family History: Family History Father Diabetes <Kat Thompson MD - Last Filed: 11/08/23 07:14> Social History: Social History Smoking Status: Never smoker Do you use any of these nicotine containing products: None Second hand tobacco smoke exposure: No How often do you have a drink containing alcohol: never AUDIT-C Alcohol total score: 0 Non-prescribed substance use: denies use service: No <Kat Thompson MD - Last Filed: 11/08/23 07:14> Exam Narrative: Exam Narrative: Vital signs as noted above. In general, an alert, well-appearing patient. Head: Normocephalic, atraumatic. Eyes: Pupils are equal reactive. Extraocular movements are full. Conjunctivae are normal. ENT: Mucous membranes are moist. Throat is normal. Neck: Supple without lymphadenopathy. Heart: Regular rate and rhythm. No murmur or rub. Lungs: Clear bilaterally. No increased work of breathing, crackles or wheezes. Abdomen: Soft and nontender. No organomegaly. Extremities: Well perfused. No edema. No calf tenderness. Pulses intact. Neurologic: Patient is alert and oriented to person and place. Speech is fluent. Face is symmetric. Moves all extremities equally. Cerebellar function intact by finger-nose testing. Visual beckett are full to confrontation. Affect: Normal. Skin: Warm and dry. Well perfused. <Kat Thompson MD - Last Filed: 11/08/23 07:14> Const: Vital Signs, click to edit/add: Vital Signs - 24 hr 11/05/23 21:24 11/05/23 23:03 11/06/23 00:11 Temperature 97.8 F 98 F Pulse Rate [Pulse Oximeter] 72 64 63 Respiratory Rate 16 16 16 Blood Pressure [Ri ght Upper Arm] 144/72 H 138/69 142/67 H Pulse Oximetry 94 96 97 Oxygen Delivery Me thod Room Air Room Air Room Air <Kat Thompson MD - Last Filed: 11/08/23 07:14> Vital Signs, click to edit/add: Vital Signs - 24 hr 11/05/23 21:24 11/05/23 23:03 11/06/23 00:11 Temperature 97.8 F 98 F Pulse Rate [Pulse Oximeter] 72 64 63 Respiratory Rate 16 16 16 Blood Pressure [Ri ght Upper Arm] 144/72 H 138/69 142/67 H Pulse Oximetry 94 96 97 Oxygen Delivery Me thod Room Air Room Air Room Air <Aura Martin MD - Last Filed: 11/06/23 01:09> Documenting provider has reviewed patient's vital signs: yes <Kat Thompson MD - Last Filed: 11/08/23 07:14> Course Course ED Course: Patient had a CT of the head without contrast on arrival, my review shows this to be negative for acute findings. Final radiology read is as follows:IMPRESSION: 1. No acute intracranial findings. 2. Mild generalized cerebral volume loss and mild presumed chronic small vessel ischemic disease. 3. Paranasal sinus mucosal thickening/opacification. A after further conversation with him, I elected to page Neurology. His symptoms are somewhat atypical for, stroke syndromes, he does not have a history of migraine. Neurology was paged around 10:00 p.m., as of 11:00 p.m. still waiting for a call back. I was able to speak with Neurology. He recommended CT angiogram of the head and neck just to make sure that the posterior circulation looked intact. He agreed that patient's symptoms are not overly suggestive of any kind a stroke syndrome. Recommended ophthalmology follow-up assuming CT angiogram was unremarkable. <Kat Thompson MD - Last Filed: 11/08/23 07:14> Reevaluation(s) Time of Reevaluation #1: 01:08 <Aura Martin MD - Last Filed: 11/06/23 01:09> Reevaluation #1: Dr. Martin- CT angio reviewed. Some calcification in the vertebral area. I did speak with Dr. Gardner from Neurology regarding this. He does not think that this correlates with the patient's ocular symptoms. He does not recommend further follow-up on this specifically. He does not recommend admission for MRI or further observation. This information was relayed to the patient who continues to be asymptomatic here in the emergency department. Will keep plan to follow-up with ophthalmology. Patient will keep a symptom diary and continue all medications as prescribed. Stroke-like alarm symptoms reviewed that would warrant ED follow-up. He verbalizes understanding and agreement. <Aura Martin MD - Last Filed: 11/06/23 01:09> Vital Signs Vital signs: Initial Vital Signs Temperature 97.8 F 11/05/23 21:24 Temperature Source Temporal Artery Scan 11/05/23 21:24 Pulse Rate 72 11/05/23 21:24 Respiratory Rate 16 11/05/23 21:24 Blood Pressure 144/72 H 11/05/23 21:24 Blood Pressure Mean 96 11/05/23 21:24 Blood Pressure Position Sitting 11/05/23 21:24 Pulse Oximetry 94 11/05/23 21:24 Oxygen Delivery Method Room Air 11/05/23 21:24 Vital Signs Temperature 97.8 F 11/05/23 21:24 Pulse Rate 72 11/05/23 21:24 Respiratory Rate 16 11/05/23 21:24 Blood Pressure 144/72 H 11/05/23 21:24 Pulse Oximetry 94 11/05/23 21:24 Oxygen Delivery Method Room Air 11/05/23 21:24 Temperature 98 F 11/06/23 00:11 Pulse Rate 63 11/06/23 00:11 Respiratory Rate 16 11/06/23 00:11 Blood Pressure 142/67 H 11/06/23 00:11 Pulse Oximetry 97 11/06/23 00:11 Oxygen Delivery Method Room Air 11/06/23 00:11 <Kat Thompson MD - Last Filed: 11/08/23 07:14> Initial Vital Signs Temperature 97.8 F 11/05/23 21:24 Temperature Source Temporal Artery Scan 11/05/23 21:24 Pulse Rate 72 11/05/23 21:24 Respiratory Rate 16 11/05/23 21:24 Blood Pressure 144/72 H 11/05/23 21:24 Blood Pressure Mean 96 11/05/23 21:24 Blood Pressure Position Sitting 11/05/23 21:24 Pulse Oximetry 94 11/05/23 21:24 Oxygen Delivery Method Room Air 11/05/23 21:24 Vital Signs Temperature 97.8 F 11/05/23 21:24 Pulse Rate 72 11/05/23 21:24 Respiratory Rate 16 11/05/23 21:24 Blood Pressure 144/72 H 11/05/23 21:24 Pulse Oximetry 94 11/05/23 21:24 Oxygen Delivery Method Room Air 11/05/23 21:24 Temperature 98 F 11/06/23 00:11 Pulse Rate 63 11/06/23 00:11 Respiratory Rate 16 11/06/23 00:11 Blood Pressure 142/67 H 11/06/23 00:11 Pulse Oximetry 97 11/06/23 00:11 Oxygen Delivery Method Room Air 11/06/23 00:11 <Aura Martin MD - Last Filed: 11/06/23 01:09> Medical Decision Making Imaging Data CT Angio head and neck: Attestation: I have reviewed the pertinent imaging results. <Aura Martin MD - Last Filed: 11/06/23 01:09> Radiologist's impression: Preliminary Report: PRELIMINARY IMPRESSION: 1. The [place] of [place] is unremarkable with no significant stenosis, occlusion, or aneurysm identified. 2. Mild calcific plaque are present in the carotid bulbs with no significant stenosis. The common carotid arteries are unremarkable. 3. Focal calcific plaque are present at the origin of the vertebral arteries bilaterally which may be causing focal stenosis. <Aura Martin MD - Last Filed: 11/06/23 01:09> Discharge Plan Discharge Clinical Impression: Vision disturbance <Kat Thompson MD - Last Filed: 11/08/23 07:14> Patient Disposition: Home, Self-Care <Kat Thompson MD - Last Filed: 11/08/23 07:14> Condition: Improved <Kat Thompson MD - Last Filed: 11/08/23 07:14> Instructions: Blurred Vision (ED) <Kat Thompson MD - Last Filed: 11/08/23 07:14> Additional Instructions: As we discussed, there are some small blockages of the arteries in your brain, as would be common for someone your age. None of these seem to correlate with the symptoms that you are having nor need any special follow-up. Please call Dr. Lubin's office to secure an appointment within the next couple of weeks. Please come back to the emergency department if you are having stroke-like symptoms and or worsening. Continue current medications. <Kat Thompson MD - Last Filed: 11/08/23 07:14> Prescriptions: No Action (DME) Contour Next Test Strips Strip See Rx Instructions .ROUTE .MEDSUPPLY Qty: 10 Patient Comments: TEST TWICE DAILY. Rx Instructions: As directed lisinopril 40 mg tablet 40 mg PO QDAY metformin 500 mg tablet 500 mg PO QDAY metoprolol tartrate 25 mg tablet 25 mg PO QDAY rosuvastatin 20 mg tablet 20 mg PO QDAY aspirin 81 mg tablet,delayed release (DR/EC) 81 mg PO QDAY multivitamin [Multiple Vitamins] Tablet 1 tab PO QDAY nitroglycerin 0.4 mg tablet, sublingual 0.4 mg sublingual ONCE Rx Instructions: as a single dose; administer 5-10 minutes before situation known to precipitate angina attack nitroglycerin 0.4 mg tablet, sublingual 0.4 mg sublingual Q5M PRN (Reason: chest pain) Qty: 20 1RF Rx Instructions: do not exceed 3 doses per episode <Kat Thompson MD - Last Filed: 11/08/23 07:14> Follow Up/Referrals: Van Chamberlain MD [Primary Care Provider] - <Kat Thompson MD - Last Filed: 11/08/23 07:14> Stand Alone Forms: [employer] Info Instructions <Kat Thompson MD - Last Filed: 11/08/23 07:14>
[2023-11-05 23:03] VITALS: BP 138/69; PULSE 64; RESP 16; O2SAT 96
--- NOTE | 2023-11-05 23:16 | CT_ITS ---
Patient: ELIZABETH NUNES Facility:?[facility] Patient ID:?[id number] Site Patient ID:?[id number]. Site :?[id number] Study:?CT-Head Angio CTA HEAD W/ISOVUE 370 95CC-11/05/2023 11:58:10 PM Ordering Physician:SEAN Final Report: CLINICAL HISTORY: Acute neurological deficit. TECHNIQUE: Standard helical CT image acquisition through the head following the administration of intravenous contrast was performed. 3D and MIP reconstructions were performed at a separate workstation and permanently archived. COMPARISON: None available. FINDINGS: No intracranial proximal large vessel occlusion or flow-limiting luminal stenosis. No evidence of cerebral aneurysm. No findings to suggest an arterial-venous shunting lesion. IMPRESSION: No intracranial proximal large vessel occlusion, flow-limiting luminal stenosis, or cerebral aneurysm. Please note that all CT scans at this facility use dose modulation, iterative reconstruction, and/or weight-based dosing when appropriate to reduce radiation dose to as low as reasonably achievable. Dictated by Fadi Serrano MD @ 11/06/2023 11:09:35 AM Signed by:?Fadi Serrano MD @11/06/2023 11:09:35 AM (Electronic Signature)
--- NOTE | 2023-11-05 23:16 | CT_ITS ---
Patient: ELIZABETH NUNES Facility:?[facility] Patient ID:?[id number] Site Patient ID:?[id number]. Site :?1940 Study:?CT-Neck Angio CTA NECK W/ISOVUE 370 95CC-11/05/2023 11:58:03 PM Ordering Physician:SEAN Final Report: CLINICAL HISTORY: Neck pain and headache. TECHNIQUE: Standard helical CT image acquisition through the neck was performed after intravenous contrast bolus enhancement. 3D and MIP reconstructions were performed at a separate workstation and permanently archived. COMPARISON: None available. FINDINGS: The origins of the great vessels from the aortic arch are patent. The common carotid arteries are patent. Atherosclerotic plaque involving dsyg-qebnnbw-bitf-right carotid bifurcations. No significant luminal stenoses of the proximal ICAs by NASCET criteria. The more distal cervical segments of the ICAs are patent. Iwjm-ao-pontydvl stenosis origin the right vertebral artery. Mild stenosis at the origin of the left vertebral artery the cervical segments of the vertebral arteries are patent. IMPRESSION: Cewx-mj-[id number] and mild stenoses at the origins of the right and left vertebral arteries, respectively. Please note that all CT scans at this facility use dose modulation, iterative reconstruction, and/or weight-based dosing when appropriate to reduce radiation dose to as low as reasonably achievable. Dictated by Fadi Serrano MD @ 11/06/2023 11:07:51 AM Signed by:?Fadi Serrano MD @11/06/2023 11:07:51 AM (Electronic Signature)
[2023-11-06 00:11] VITALS: BP 142/67; PULSE 63; RESP 16; TEMP 36.6; O2SAT 97
== END 2023-11-06 01:15 | disposition home or self-care (01) ==
PROVIDERS: Emergency Provider Family Medicine; PCP Family Medicine
DX: H53.9 Unspecified visual disturbance (principal)
CPT/HCPCS: 70450; 70496; 70498; 99284; 99285; Q9967

== ENCOUNTER 2025-02-17 09:44 | Outpatient (CLI) | payer MEDICARE, BC, SELFPAY ==
--- NOTE | 2025-02-17 11:21 | P.ANES_ITS ---
Anesthesia Charges Start Date/Time Anesthesia Start Date: 02/17/25 Anesthesia Start Time: 10:52 Stop Date/Time Anesthesia Stop Date: 02/17/25 Anesthesia Stop Time: 11:19 Coding CPT Codes CPT Codes: ANES LWR INTST NDSC NOS - 77537 ([id number]) P3 - PATIENT W/SEVERE SYS DISEASE, QX - REPLENISHMENT MERCHANDISING ASSOCIATE NICOLE W/ MED DIRECTION, QY - MEDICALLY DIRECTED REPLENISHMENT MERCHANDISING ASSOCIATE
--- NOTE | 2025-02-17 11:21 | W.ANESCHARGE ---
Anesthesia Charges Start Date/Time Anesthesia Start Date: 02/17/25 Anesthesia Start Time: 10:52 Stop Date/Time Anesthesia Stop Date: 02/17/25 Anesthesia Stop Time: 11:19 Coding CPT Codes CPT Codes: ANES LWR INTST NDSC NOS - 29235 ([id number]) P3 - PATIENT W/SEVERE SYS DISEASE, QX - FITNESS TRAINER NICOLE W/ MED DIRECTION, QY - MEDICALLY DIRECTED FITNESS TRAINER
--- NOTE | 2025-02-17 11:30 | W.ANESCHARGE ---
Anesthesia Charges Start Date/Time Anesthesia Start Date: 02/17/25 Anesthesia Start Time: 10:52 Stop Date/Time Anesthesia Stop Date: 02/17/25 Anesthesia Stop Time: 11:19 Summary Extremes of Age - Over 70 or under 1: MDA Coding CPT Codes CPT Codes: ANES LWR INTST NDSC NOS - 42100 ([id number]) QK - RETAIL AIDE 2-4 CNCRNT ANES PROC, QX - FILM CREW MEMBER SVC W/ MD MED DIRECTION, P3 - PATIENT W/SEVERE SYS DISEASE Additional Codes: Summary - Extremes of Age - Over 70 or under 1: MDA ([id number])
== END 2025-02-17 09:45 | disposition home or self-care (01) ==
LOC: OP CLINIC 09:47
PROVIDERS: PCP Family Medicine; Visit Provider Internal Medicine Gastroenterology
DX: Z12.11 Encounter for screening for malignant neoplasm of colon (principal); Z86.0100 Personal history of colon polyps, unspecified; D12.2 Benign neoplasm of ascending colon
CPT/HCPCS: 00811; 45385; 88305; 99100; J2704